=== PATIENT | male | born 2000 | race Caucasian/White ===

== ENCOUNTER 2022-12-09 05:33 | Outpatient (CLI) | payer OTHER ==
[~2022-12-09] VITALS: Ht 180.3 cm; Wt 109.1 kg
[2022-12-09] MEDS ORDERED: DOXY25TA50 PO (08:58)
[2022-12-09] MEDS ORDERED: OMEP40CA6 PO (08:58)
== END 2022-12-09 09:18 | disposition home or self-care (01) ==
LOC: PREOP 05:33
PROVIDERS: ATTEND Otolaryngology Otolaryngology/Facial Plastic Surgery
DX: Z01.818 Encounter for other preprocedural examination (principal)

== ENCOUNTER 2022-12-16 05:57 | Day surgery (SDC) | payer OTHER ==
[2022-12-16] VITALS (10 sets, daily range): BP systolic 105–139; BP diastolic 53–91
[~2022-12-16] VITALS: Ht 180 cm; Wt 109.1 kg
[~2022-12-16 05:57] MED LIST: DOXY25TA50 PO; OMEP40CA6 PO
[2022-12-16] MEDS ORDERED: LACTATED RINGERS 1,000 ML 1,000 ML IV PRN (06:15)
[2022-12-16] MEDS ORDERED: ONDANSETRON INJECTION 4 MG/2 ML (SDV) ONE (06:33)
[2022-12-16] MEDS ORDERED: MIDAZOLAM INJ 2 MG/2 ML VIAL ONE (06:33)
[2022-12-16] MEDS ORDERED: SEVOFLURANE (ULTANE) 15 ML INHAL SOLN ONE ×2 (06:33→07:40)
[2022-12-16] MEDS ORDERED: LIDOCAINE PF 2% 5 ML VIAL ONE (06:33)
[2022-12-16] MEDS ORDERED: proPOfol INJECTION 200 MG/20 ML VIAL IV ONE (06:33)
[2022-12-16] MEDS ORDERED: fentaNYL INJECTION 100 MCG/2 ML VIAL ONE (06:33)
[2022-12-16 06:34] LABS: BASOPHILS # (AUTO) 0.1 10^3/uL (0.0-0.1); BASOPHILS % (AUTO) 1 % (0-10); EOSINOPHILS # (AUTO) 0.3 10^3/uL (0.0-0.3); EOSINOPHILS % (AUTO) 3 % (0-10); HEMATOCRIT 48 % (40-54); LYMPHOCYTES # (AUTO) 3.7 10^3/uL (1.0-4.0); LYMPHOCYTES % (AUTO) 41 % (12-44); MEAN CORPUSCULAR HEMOGLOBIN 31 pg (25-34); MEAN CORPUSCULAR HGB CONC 34 g/dL (32-36); MEAN CORPUSCULAR VOLUME 92 fL (80-99); MEAN PLATELET VOLUME 10.7 fL (9.0-12.2); MONOCYTES # (AUTO) 0.7 10^3/uL (0.0-1.0); MONOCYTES % (AUTO) 8 % (0-12); NEUTROPHILS # (AUTO) 4.2 10^3/uL (1.8-7.8); NEUTROPHILS % (AUTO) 47 % (42-75); PLATELET COUNT 262 10^3/uL (130-400)
[2022-12-16 06:37] LABS: POTASSIUM 3.8 MMOL/L (3.6-5.0)
[2022-12-16 06:38] LABS: CALCIUM 9.3 MG/DL (8.5-10.1)
[2022-12-16 06:42] LABS: CREATININE SERUM 0.99 MG/DL (0.60-1.30)
[2022-12-16] MEDS ORDERED: LIDOCAINE 2% w/EPI 1:100,000 20 ML VIAL ONE (06:46)
--- NOTE | 2022-12-16 06:58 | Progress Note-Pre Operative ---
Pre-Operative Progress Note Date of Available H&P: Dec 16, 2022 Date H&P Reviewed: Dec 16, 2022 Time H&P Reviewed: 06:30 History & Physical: H&P Reviewed, Patient Examed, No changes noted Changes from last HP none Pre-Operative Diagnosis: Recurrent Laryngeal Lesion- ISIDRO FELDMAN MD Dec 16, 2022 06:58
--- NOTE | 2022-12-16 07:25 | Progress Note-Post Operative ---
Post-Operative Progess Note Surgeon (s)/[employer] Laborer (s) Surgeon ISIDRO FELDMAN MD [employer] n/a Pre-Operative Diagnosis Recurrent Laryngeal Lesion- Post-Operative Diagnosis same Post-Op Procedure Note Date of Procedure: Dec 16, 2022 Name of Procedure Performed: Direct Laryngoscopy with Removal of Left Vocal cord Lesion Description & Findings Description and Findings: n/a Anesthesia Type get Estimated Blood Loss minimal Packing none. Specimen(s) collected/removed left laryngeal lesion ISIDRO FELDMAN MD Dec 16, 2022 07:25
[2022-12-16] MEDS ORDERED: PROMETHAZINE INJ 25 MG/ML VIAL IV PRN (07:30)
[2022-12-16] MEDS ORDERED: HYDROcodone/ACETAMINOPHEN 5 MG/325 MG TABLET PO PRN (07:30)
[2022-12-16] MEDS ORDERED: LIDOCAINE 2% w/EPI 1:100,000 20 ML VIAL INJ ONE (07:38)
[2022-12-16] MEDS ORDERED: ROCURONIUM 50 MG/5 ML VIAL IV ONE (07:40)
[2022-12-16] MEDS ORDERED: dexAMETHasone INJ 10 MG/ML 1 ML VIAL ONE (07:40)
--- NOTE | 2022-12-16 07:56 | Anesthesia-General Post-Op ---
General Patient Condition Mental Status/LOC: Same as Preop Cardiovascular: Satisfactory Nausea/Vomiting: Absent Respiratory: Satisfactory Pain: Controlled Complications: Absent Post Op Complications Complications None Follow Up Care/Instructions Patient Instructions None needed. Anesthesia/Patient Condition Patient Condition Patient is doing well, no complaints, stable vital signs, no apparent adverse anesthesia problems. No complications reported per nursing. SUDHAKAR BLOOD CRNA Dec 16, 2022 07:56
[2022-12-16] MEDS ORDERED: SUGAMMADEX INJ 100 MG/ML 5 ML VIAL IV ONE (07:58)
[2022-12-16] MEDS ORDERED: morphine INJ 10 MG/ML 1ML (SYR OR VIAL) IVP ONE (08:00)
[2022-12-16] MEDS ORDERED: ONDANSETRON INJECTION 4 MG/2 ML (SDV) IVP PRN (08:00)
[2022-12-16] MEDS ORDERED: MEPERIDINE INJ 50 MG/ML VIAL IVP ONE (08:00)
[2022-12-16] MEDS ORDERED: fentaNYL INJECTION 100 MCG/2 ML VIAL IVP ONE (08:00)
[2022-12-16] MEDS ORDERED: ACHD5005 PO (08:53)
== END 2022-12-16 09:20 | disposition home or self-care (01) ==
LOC: SDC 05:57
PROVIDERS: ATTEND Otolaryngology Otolaryngology/Facial Plastic Surgery
DX: J38.3 Other diseases of vocal cords (principal); R49.0 Dysphonia; F17.220 Nicotine dependence, chewing tobacco, uncomplicated; Z28.310 Unvaccinated for COVID-19
CPT/HCPCS: 36415; 80048; 85025; 87081